=== PATIENT | male | born 1940 | race Caucasian/White ===

== ENCOUNTER → 2020-04-24 | Outpatient (CLI) | payer MEDICARE ==
[~2020-04-24] VITALS: Ht 185.4 cm; Wt 88.9 kg
[2020-04-24] VITALS (7 sets, daily range): BP systolic 129–152; BP diastolic 75–93
[~2020-04-24] MED LIST: CARVEDILOL25 MG PO; DIGOXIN250 MCG PO; LIPITOR 20 MG T20 M1 PO; LISINOPRIL20 MG PO; SPIRONOLACTONE25 MG PO; WARFARIN SODIUM5 MG PO
[2020-04-24 09:48] LABS: HEMATOCRIT 39.9 % (42.0-52.0); HEMOGLOBIN 13.4 gm/dL (14.0-18.0); MCH 26.8 pg (26.0-34.0); MCHC 33.7 g/dL (28.0-37.0); MCV 79.7 fL (80.0-100.0); MPV 8.8 fl. (7.2-11.1); RBC 5.01 mil/uL (4.50-6.00); RDW-CV 18.4 % (10.5-14.5); WBC 6.6 thou/uL (4.0-11.0)
[2020-04-24 10:01] LABS: ANION GAP 6 mmol/L (7-16); BUN 17 mg/dL (7-18); CALCIUM 9.6 mg/dL (8.5-10.1); CHLORIDE 103 mmol/L (98-107); CO2 30 mmol/L (21-32); GLUCOSE 118 mg/dL (70-99); POTASSIUM 5.5 mmol/L (3.5-5.1); SODIUM 139 mmol/L (136-145)
[2020-04-24 10:05] LABS: ALBUMIN 3.4 g/dL (3.4-5.0); ALKALINE PHOSPHATASE 127 U/L (46-116); CHOLESTEROL 102 mg/dL (<200); HDL CHOLESTEROL 31 mg/dL (>40); LDL CHOLESTEROL 56 mg/dL (<100); SGOT 32 U/L (15-37); SGPT 19 U/L (30-65); TC:HDL 3.3 Ratio (Not establshd); TOTAL BILIRUBIN 1.6 mg/dL (<0.1-1.0); TOTAL PROTEIN 7.6 g/dL (6.4-8.2); TRIGLYCERIDE 79 mg/dL (<150); VLDL 16 mg/dL (<40)
[2020-04-24 10:07] LABS: SERUM ASSESSMENT Clear
--- NOTE | 2020-04-24 10:21 | EKG ---
[place] [address] ELECTROCARDIOGRAM REPORT Name: PATRICKMIRELA Room: [facility]#: [id number] Admission: 04/24/20 Attend Phys: Benjamín Chowdhury MD Discharge: Date of : 44 Date of Service: 04/24/20 0936 Report #: [id number] THIS REPORT FOR: //name// 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1940 Requested By: Benjamín Chowdhury Order Number: [id number] Josue MD: Benjamín Chowdhury Measurements Intervals [place] Rate: 86 P: TN: QRS: 33 QRSD: 107 T: -49 QT: 337 QTc: 403 Interpretive Statements Atrial fibrillation RsR' in V1 Ventricular premature complex Nonspecific repol abnormality, diffuse leads No previous ECG available for comparison Electronically Signed On 04-24-2020 10:21:50 CDT by Benjamín Chowdhury [email or web address] <ELECTRONICALLY SIGNED> By: Benjamín Chowdhury MD, [facility] 04/24/20 1021 Benjamín Chowdhury MD, [facility] /EPI
[2020-04-24 10:26] LABS: APTT 40.8 Seconds (25.0-31.3); INR 3.2; PROTIME 31.8 Seconds (9.20-11.50)
--- NOTE | 2020-04-26 15:26 | CARD ---
[address] [address] CARDIAC CATH REPORT Name: PATRICKMIRELA Cano Rachael Room: [facility]#: [id number] Admission: 04/24/20 Attend Phys: Benjamín Chowdhury MD, F Discharge: Date of : 44 Report #: [id number] THIS REPORT FOR: //name// cc: MARCIE Salazar No family physician/PCP MARCIE - No family physician/PCP ~ APPROVED REPORT Study performed: 04/24/2020 11:55:39 Patient Status: Out-Patient Room #: Event Personnel: Benjamín Chowdhury Vallez Filter Operator, Monica Ontiveros RN Burglar Alarm Assembler, Fidelia Collier RTR Monitor, Chalino Wang RTR Scrub, Sharla Barros RTR Monitor Exam: Generator Change for a Single Chamber Permanent Pacemaker Indications: end of battery life The patient is a 80 year-old male with a history of Sick Sinus Syndrome. Patient Info Anticoagulant Therapy: warfarin Conscious Sedation No Sedation given. Case start time was 12:36 and case end was 13:19. Implanted Devices: [place] S SR MRI SureScan Metronic pacemaker generator. Serial: [id number]. Model: [id number]. Explanted Devices: Dual chamber medtronic pacemaker Procedure The patient underwent informed consent. We discussed the details of the procedure including the risks, which include, but not limited to bleeding, infection, vascular damage, cardiac perforation, and pneumothorax. He understood these risks and was willing to proceed. As such, he was brought to the EP/Cardiac Catheterization laboratory in a fasting and sedated state and prepped and draped in a The patient underwent conscious sedation, with no related complications. The patient was brought to the EP/Cardiac Catheterization laboratory and the left chest and shoulder were prepped and draped in a sterile manner. During this case, Fluoroscopy and [place] [address] CARDIAC CATH REPORT Name: MIRELA NGUYEN Room: [facility]#: [id number] Admission: 04/24/20 Attend Phys: Benjamín Chowdhury MD, F Discharge: Date of : 44 Report #: [id number] imaging. The left subclavian region was infiltrated with 2% Lidocaine with Epinephrine subcutaneous anesthesia. A transverse incision was made in the left upper chest cavity. Capturing and sensing thresholds were verified. The patients underlying rhythm was atrial fibrillation. Therefore, the chronic atrial lead was capped. Since the patient was on warfarin, D-stat Flowable was irrigated into the pacemaker pocket. Electrode Parameters R Wave: 13 mv Ventricular Threshold: 0.5 v @ 0.4 ms Ventricular Resistance: 420 ohm Generator Change The lead was attached to the appropriate receptacle on the new pulse generator and setscrews firmly tightened to insure adequate contact and stability. The lead and pulse generator were placed into the subcutaneous pocket. Sharp and sponge counts were confirmed to be correct. At this time the pocket was closed subcutaneously with a 0 Vicryl and 2.0 Vicryl and the skin was closed with a 4.0 Vicryl. The operative site was dressed in sterile fashion with dermabond and the patient was transferred to the floor in stable condition. Complications The patient tolerated the procedure well and there were no complications associated with the procedure. Findings Specimens Removed: Yes old generator Estimated Blood Loss: less than 5 ml Conclusion successful replacement of a dual chamber Medtronic pacemaker with a single chamber Medtronic pacemaker. <ELECTRONICALLY SIGNED> By: Benjamín Chowdhury MD, FACC 04/26/20 1525 1525 1525Daamrit Chowdhury MD, FACC /INF
== END ==
LOC: M.CL 08:53
PROVIDERS: ATTEND Internal Medicine Cardiovascular Disease
DX: Z45.010 Encounter for checking and testing of cardiac pacemaker pulse generator [battery] (principal); I10 Essential (primary) hypertension; I48.0 Paroxysmal atrial fibrillation; I49.5 Sick sinus syndrome; I25.810 Atherosclerosis of coronary artery bypass graft(s) without angina pectoris; Z95.2 Presence of prosthetic heart valve; Z79.899 Other long term (current) drug therapy; Z98.890 Other specified postprocedural states